=== PATIENT | female | born 1965 | race Caucasian/White ===

== ENCOUNTER 2017-12-10 13:35 | Emergency (ER) | payer OTHER ==
[2017-12-10 13:44] VITALS: BP 140/83; PULSE 100; TEMP 98.6; BMI 24.2
--- NOTE | 2017-12-10 13:50 | PDOC ---
History of Present Illness - General Chief Complaint: Pain Stated Complaint: LEFT THUMB/HAND PAIN Time Seen by Provider: 12/10/17 13:38 History Source: Patient Exam Limitations: No Limitations - History of Present Illness Initial Comments: 12/10/17 13:44 52 y/o female with left hand pain toady. Is being worked up for arthritis. Was diagnosed in past with Lupus. My have gout. Patient has diagnosis of Fibromyalgia. Took Advil. Denies any recent fall or trauma. 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 No weakness or numbness. Pt made her own splint, but not helping. Severity: reports: moderate Upper Extremity Pain Location: right: thumb, wrist Method of Injury: denies: fell Modifying Factors: improves with: immobilization Past History - Past Medical History Allergies/Adverse Reactions: Allergies Allergy/AdvReac Type Severity Reaction Status Date / Time Penicillins Allergy Severe Difficulty Verified 12/10/17 13:39 Breathing butalbital [From Fioricet] Allergy Verified 12/10/17 13:39 caffeine [From Fioricet] Allergy Verified 12/10/17 13:39 oxycodone HCl [From Percocet] Allergy Nausea Verified 12/10/17 13:39 OPIATES Allergy Uncoded 12/10/17 13:39 Home Medications: Ambulatory Orders Clonazepam [Klonopin] 1 mg PO QID 10/22/15 Dextroamphetamine/Amphetamine [Adderall Xr 20 mg Capsule] 20 mg PO TID 10/22/15 Fluoxetine HCl [Prozac] 20 mg PO QID 10/22/15 Sulfamethoxazole/Trimethoprim [Bactrim Ds Tablet] 1 each PO BID #14 tablet 02/21 Dexamethasone 4 mg PO TID #9 tablet 12/10/17 COPD: No Disorders: Yes (PAINFUL BLADDER SYNDROME) Kidney Stones: Yes Psychiatric Problems: Yes (DEPRESSION,ANXIETY) Other medical history: FIBROMYALGIA - Suicide/Smoking/Psychosocial Hx Smoking History: Current every day smoker Have you smoked in the past 12 months: Yes Number of Cigarettes Smoked Daily: 5 Information on smoking cessation initiated: Yes 'Breaking Loose' booklet given: 12/10/17 Hx Alcohol Use: (daily) Drug/Substance Use Hx: No Substance Use Type: None Review of Systems - Review of Systems Able to Perform ROS?: Yes Is the patient limited Malay proficient: No Constitutional: No: Chills, Diaphoresis, Fever Respiratory: No: Shortness of Breath Cardiac (ROS): No: Chest Pain Musculoskeletal: Yes: Joint Pain. No: Back Pain, Gout, Muscle Pain All Other Systems: Reviewed and Negative *Physical Exam - Vital Signs Last Vital Signs Temp Pulse Resp BP Pulse Ox 98.6 F 100 H 20 140/83 100 12/10/17 13:35 12/10/17 13:35 12/10/17 13:35 12/10/17 13:35 12/10/17 13:35 - Physical Exam General Appearance: Yes: Nourished, Appropriately Dressed. No: Apparent Distress (d) HEENT: positive: EOMI, ILANA, Normal ENT Inspection, Normal Voice, Symmetrical, Pharynx Normal Neck: positive: Trachea midline, Normal Thyroid, Supple. negative: Tender, Rigid Respiratory/Chest: positive: Lungs Clear, Normal Breath Sounds. negative: Chest Tender, Respiratory Distress Cardiovascular: positive: Regular Rhythm, Regular Rate, S1, S2. negative: Edema , JVD, Murmur Vascular Pulses: Femoral (R): 4+, Femoral (L): 4+, Carotid (R): 4+, Carotid (L) : 4+, Dorsalis-Pedis (R): 4+, Doralis-Pedis (L): 4+ Gastrointestinal/Abdominal: positive: Normal Bowel Sounds, Flat, Soft ( ). negative: Tender Lymphatic: negative: Adenopathy, Tenderness, Other Musculoskeletal: positive: Normal Inspection. negative: CVA Tenderness Extremity: positive: Normal Capillary Refill, Normal Inspection, Normal Range of Motion, Tender (left thumb with tenderness at base on movment and tenderness at wrist, full ROM, no compartment syndome, pulse 2+/4 b/l in UE, no focal deficits noted, + Finklestein test). 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 Appears to have a tenosynovitis, will place inaplint Needs Orthopedic follow up Will place on Decadron 4 mg 3x/day for3-5 days If worsen to ER *DC/Admit/Observation/Transfer Diagnosis at time of Disposition: De Quervain's disease (tenosynovitis) - Discharge Dispostion Disposition: HOME Condition at time of disposition: Stable Decision to Admit order: No - Prescriptions Prescriptions: Dexamethasone 4 mg PO TID #9 tablet - Referrals Referrals: Patel Tubbs MD [Staff Physician] - - Patient Instructions Printed Discharge Instructions: DI for Tenosynovitis Additional Instructions: Splint, ice, rest Motrin Decadron 4 mg 3x/day for 3 days Follow up with Orthopedics If worsen return to ER - Post Discharge Activity
== END 2017-12-10 14:05 | disposition home or self-care (01) ==
LOC: FER 13:35
PROC: 2W3HX1Z Immobilization of Left Thumb using Splint (ICD-10-PCS; principal; 2017-12-10)
DX: M65.4 Radial styloid tenosynovitis [de Quervain] (principal); F41.8 Other specified anxiety disorders; F17.210 Nicotine dependence, cigarettes, uncomplicated; M79.7 Fibromyalgia
CPT/HCPCS: 29130; 99283-25